=== PATIENT | male | born 1980 | race Caucasian/White ===

== ENCOUNTER 2017-07-17 01:47 | Emergency (ER) | payer OTHER ==
[~2017-07-17] VITALS: Ht 188 cm; Wt 100.0 kg
[2017-07-17] MEDS ORDERED: DIPH,PERTUSS(ACELL),TET VAC/PF 0.5 ML IM-VACC ONE ×2 (02:30→03:11)
[2017-07-17] MEDS ORDERED: OMNIPAQUE 350 MG/ML, 100ML BOTTLE ONE (02:30)
[2017-07-17 02:33] LABS: HEMATOCRIT 47.2 % (39.2-51.8); HEMOGLOBIN 15.9 g/dL (13.7-18.0); WHITE BLOOD COUNT 11.2 x10^3/uL (3.4-10)
[2017-07-17 02:43] LABS: BLOOD UREA NITROGEN 15 mg/dL (7-18)
[2017-07-17 03:08] VITALS: BP 129/81
[2017-07-17] MEDS ORDERED: ONDANSETRON 2MG/ML, 2ML ONE (03:11)
[2017-07-17] MEDS ORDERED: MORPHINE SULFATE 4 MG/ML, 1ML ONE (03:11)
[2017-07-17] MEDS ORDERED: MORPHINE SULFATE 4 MG/ML, 1ML IVPush ONE (03:30)
[2017-07-17] MEDS ORDERED: ONDANSETRON 2MG/ML, 2ML IVPush ONE (03:30)
== END 2017-07-17 03:58 | disposition home or self-care (01) ==
LOC: ED 03:46
DX: S30.811A Abrasion of abdominal wall, initial encounter (principal); S50.311A Abrasion of right elbow, initial encounter; S50.811A Abrasion of right forearm, initial encounter; S50.312A Abrasion of left elbow, initial encounter; S50.812A Abrasion of left forearm, initial encounter; S79.911A Unspecified injury of right hip, initial encounter; F15.10 Other stimulant abuse, uncomplicated; F11.10 Opioid abuse, uncomplicated; V98.8XXA Other specified transport accidents, initial encounter; Y93.89 Activity, other specified; Y99.8 Other external cause status; Y92.488 Other paved roadways as the place of occurrence of the external cause
CPT/HCPCS: 36415; 72190; 74177; 80048; 80307; 82040; 85025; 90471; 90715; 96374; 96375; 99285; J2405; Q9967

== ENCOUNTER 2018-12-17 18:56 | Emergency (ER) | payer OTHER ==
[~2018-12-17] VITALS: Ht 188 cm; Wt 128.3 kg
[2018-12-17 19:15] VITALS: BP 123/78
--- NOTE | 2018-12-17 19:41 | NUR ---
PT LEFT AMA. AMA PAPER SIGNED WITH REGISTRATION.
== END 2018-12-17 20:13 | disposition left against medical advice (07) ==
LOC: ED 20:06
DX: R20.0 Anesthesia of skin (principal); Z53.21 Procedure and treatment not carried out due to patient leaving prior to being seen by health care provider